=== PATIENT | female | born 1940 | race Caucasian/White ===

== ENCOUNTER 2018-05-13 21:45 | Inpatient (IN) ==
[2018-05-13] MEDS ORDERED: CEFEPIME 1 GM in NS 100 ML IV ONE ×2 (21:57→22:16)
[2018-05-13] MEDS ORDERED: LEVOFLOXACIN PB 750 MG/150 ML BAG IV ONE ×2 (21:58→22:16)
--- NOTE | 2018-05-13 22:02 | Emergency Department Report ---
Asthma HPI - General Stated Complaint: Pneumonia Time Seen by Provider: 05/13/18 21:51 Source: patient, EMS, other (Dr. Schwartz) Mode of arrival: EMS Limitations: no limitations - History of Present Illness HPI Narrative: Patient was seen in the office on Thursday, 4 days ago, for cough, shortness of breath, malaise and body aches. That time the patient was started on azithromycin, Tessalon Perles, prednisone, and increased Ventolin use at home. Patient also had lab and chest x-ray ordered, but was not able to make it to the hospital to get those tests done until today. Today the patient was found to have an elevated CBC at 20,000 with significant left shift, elevated lactate consistent with the chest x-ray which also showed pneumonia. Patient was instructed by her physician to come directly to the ER for further testing, initiation of antibiotics and fluids, for pneumonia with sepsis. Patient was brought by EMS, given one DuoNeb in route, and her dyspnea has essentially resolved for the time being. Patient has a history of COPD, and has had sepsis with pneumonia in the past - Related Data Home Medications Medication Instructions Recorded Confirmed Ibuprofen 400 mg PO Q4H PRN 11/10/17 11/10/17 Losartan [Cozaar] 50 mg PO DAILY 11/10/17 11/10/17 Previous Rx's Medication Instructions Recorded Albuterol HFA Inhaler [Ventolin 2 puff ORAL INH Q6HR PRN #1 inhaler 11/10/17 Hfa 90 mcg/actuation] Azithromycin [Zithromax Tri-Du] 500 mg PO DAILY #3 tab 11/10/17 Allergies Allergy/AdvReac Type Severity Reaction Status Date / Time Sulfa (Sulfonamide Allergy Unknown Verified 11/10/17 13:11 Antibiotics) Review of Systems All systems: reviewed and negative except as stated PFSH Patient Stated Medical History Other HEENT Yes: "need corrective lens" Hypertension Yes Chronic Obstructive Pulmonary Yes Disease (COPD) Pneumonia Yes Shingles Yes: 09/2017 Other Infectious Yes: polio Other Reproductive Yes: 3 vaginal deliveries,7, 1958, 1968 COPD Pneumonia Sepsis Surgical History: Negative - Social History Smoking status: Never smoker Substance use type: does not use Physical Exam - Limitations Limitations: no limitations - General General appearance: alert, in no apparent distress, other (vital signs are stable without tachycardia, hypotension, hypoxemia, or fever at this time) - Normal Exams: Head:: Normocephalic without trauma Eyes:: Pupils are PERRLA w/ EOMI, No scleral icterus, irritation, or foreign bodies noted ENMT:: No facial trauma, nasal exudates, pharyngeal erythema, or exudates are noted Neck:: Full range of motion, without adenopathy, JVD, bruits or thyromegaly Cardiovascular:: Regular rate and rhythm, without murmur or gallop, Pulses 2+ all extremities, capillary refill, <2 seconds all extremities Abdomen:: Bowel sounds positive, soft, non-tender, non-distended, no hepatosplenomegaly, masses or bruits noted Lymphatic:: No lymphadenopathy, or lymphedema noted Musculoskeletal:: No tenderness, or deformity noted, good range of motion, all extremities Integumentary:: No rashes, hives, or bruising noted, hair and nails, without abnormality Neurological:: Patient is alert, and oriented, cranial nerves, motor/sensory/ cerebellar, exams w/o gross deficits, to observation Psychiatric:: Patient exhibits, appropriate attention, emotion and affect - Chest Chest inspection: Present: normal inspection, symmetric chest wall rise. Absent : tenderness - Respiratory Respiratory exam: Absent: normal lung sounds bilaterally (mild coarse rhonchi bilaterally), respiratory distress, wheezes, stridor, accessory muscle use, prolonged expiratory phase Dyspnea - [facility] Narrative Medical decision making narrative: Patient is started on a 2 L saline bolus with triple antibiotic treatment for failed outpatient pneumonia with sepsis Labs are really ordered including CBC, CMP, and CT chest with IV contrast at the request of Dr. Schwartz Currently patient appears to have a stable pneumonia with sepsis, does not meet criteria for severe sepsis or sepsis with shock. We will admit inpatient medical floor to Dr. Schwartz 2199 - Dr. Schwartz in ER with Pt now. Admitting to Medical floor IP. Disposition Clinical Impression: Pneumonia Qualifiers: Pneumonia type: due to unspecified organism Laterality: right Lung location: middle lobe of lung Qualified Code(s): J18.1 - Lobar pneumonia, unspecified organism Sepsis Qualifiers: Sepsis type: sepsis due to unspecified organism Qualified Code(s): A41.9 - Sepsis, unspecified organism Disposition: 02 To [facility] Acute Care Condition: Stable Prescriptions: No Action Ibuprofen 400 mg PO Q4H PRN PRN Reason: Pain Albuterol HFA Inhaler [Ventolin Hfa 90 mcg/actuation] 2 puff ORAL INH Q6HR PRN #1 inhaler PRN Reason: Shortness Of Air/Wheezing Azithromycin [Zithromax Tri-Du] 500 mg PO DAILY #3 tab Losartan [Cozaar] 50 mg PO DAILY Referrals: Ryan Schwartz DO [Primary Care Provider] - - Seen By: physician
[2018-05-13] MEDS ORDERED: CEFTRIAXONE (ER USE ONLY) 1 GM in NS 100 ML IV ONE (22:06)
[2018-05-13] MEDS ORDERED: AZITHROMYCIN IV 500 MG in NS 250ml 250 ML IV ONE (22:06)
[2018-05-13] MEDS ORDERED: SALINE FLUSH 10ml SYRINGE ONE (22:10)
[2018-05-13] MEDS ORDERED: IOHEXOL 300mg/ml 75ml INJECTION ONE (22:10)
[2018-05-13] MEDS: NS 1,000 ML IV SCH ×2 (22:11→23:30)
[2018-05-13] MEDS: SALINE FLUSH 10ml SYRINGE IVF PRN (22:14)
[2018-05-14 00:18] VITALS: BMI 31.7
[2018-05-14] MEDS ORDERED: VANCOMYCIN - PHARMACY CONSULT MC ONE (00:18)
[2018-05-14] MEDS ORDERED: PHARMACY CONSULT - OTHER MEDS MC ONE (00:19)
--- NOTE | 2018-05-14 00:49 | History & Physical Report ---
History of Present Illness Date: 05/14/18 Chief complaint: communnity acquired pneumonia HPI: patient is a pleasant 77yo female with a history of post-polio syndrome and a remote history of asthma who is known to our clinic. she was in her usual state of health up until about 7 days ago. at that time she started developing runny nose and clear rhinorrhea which developed into left ear pain, productive cough with yellow sputum, fevers/chills as well as considerable generalized fatigue and weakness. she was seen in clinic 2 days ago for this. at that time her vitals were stable except for significant tachypnea on exam. coarse crackles were noted throughout her bases bilaterally and significant bibasilar end-expiratory wheezes noted as well. hospitalization/ER was recommended at that time but patient refused. labs and CXR were ordered as outpatient as back up to this at [facility] (see that progress note for details) and were recommended for that day. per patient report she couldn't get a ride at that time so didn't get the lab until today. she was noted to have a wbc count of about 20,000 as well as a bandemia. procalcitonin, troponin were unremarkable. CRP was significantly elevated at about 160. cmp showed some hyperglycemia, transaminase elevation and was otherwise unremarkable. EKG done in clinic 2 days ago was non acute. mg/phos done today were unremarkable. CXR was noted to have evidence of a bibasilar pneumonia. patient had been started already on azithromycin, prednisone, tessalon perles, albuterol on Thursday when she refused inpatient therapy. patient called today and recommended she come into ER immediately by EMS to be evaluated for admission. she initially refused and stated she'd only come in by private vehicle but, after not being about to find a ride, she eventually did come in by EMS. she has noticed some increase in strength today and has been on the above meds for couple of days. in the ER her vitals were stable. her cmp showed mild hyperglycemia as noted as well as improved transaminase elevation and was otherwise unremarkable. a lactic acid was high at 3.9. a cbc did show an improvement of the leukocytosis and the bandemia had resolved and was otherwise unremarkable. a CT scan of the chest with IV contrast did show multifocal pneumonia without any evidence of empyema or parapneumonic effusions. patient was started on vancomycin and levaquin and given 2 liters of IV normal saline and admitted to the floor. as I see the patient she is still feeling quite ill but is stable otherwise. ROS positive for feeling feverish and chilled as noted above. she hasn't taken her temperature. no recent travel, camping, sick exposures, luna exposures. left ear pain noted above has resolved with the azithromycin. she has a mild splinting pain located about 4 inches right lateral to lower lumbar spine which is worse when she breaths deep. she is SOA but improved from a couple of days ago. SOA is most prominent on exertion. no skin changes or new rashes. no falls, trauma, injuries. no headaches, ear pain, ear drainage, sinus pain, sore throat. runny nose as noted above persists. no dizziness, syncope, near- syncope. no vision changes, cranial nerve symptoms/deficits, unintentional weight loss, night sweats, constitutional symptoms. no IV drug use. no significant alcohol use. doesn't smoke and states she never has. no new or changing numbness/weakness/tingling anywhere. chronic post-polio syndrome is unchanged from previous baseline and I'll defer yout to clinic notes for information on that as it is chronic, not changed and not acutely worse. no numbness/weakness/tingling/pain in face/eyelids. no cranial nerve symptoms/ deficits. no seizure symptoms or seizure history. no other chest pain. no orthopnea, PND, new edema, leg asymmetry, palpitations, hemoptysis. no abdominal pain, GERD symptoms, nausea, vomiting, diarrhea, constipation, bloody/ black stools, hematemesis, coffee ground emesis, melena, BRBPR, dysphagia, GI warning symptoms. appetite is modestly diminished with this illness. no other constitutional symptoms. no meningeal symptoms, photophobia, neck rigidity, encephalopathic symptoms, confusion, altered mentation, obtundation, depression symptoms, anxiety, changes in cognition/personality/behavior. no homicidal/ suicidal ideations. no dysuria, hematuria, urinary frequency, flank pain, nocturia, urinary/bowel incontinance, urinary retention, polyuria, oliguria, other urinary symptoms/changes. no boggy/inflammed/swollen/painful focal joints or muscle groups. no pallor/cyanosis of coldness of extremities. see above and below for other review of systems. Review of Systems - Constitutional Constitutional: Present: as per HPI - EENMT Eyes: Present: as per HPI, other (no acute vision changes. ) Ears: Present: as per HPI Balance: Present: as per HPI Nose: Present: as per HPI Mouth/Throat: Present: as per HPI - Cardiovascular Cardiovascular: Present: as per HPI Vascular: Present: see HPI - Respiratory Respiratory: Present: as per HPI - Gastrointestinal Gastrointestinal: Present: as per HPI - Genitourinary Genitourinary: Present: as per HPI Genitourinary Comments: no DATABASE TECHNICIAN issues or changes. - Musculoskeletal Musculoskeletal: Present: as per HPI Musculoskeletal Comments: no bony spine tenderness - Integumentary/Breasts Integumentary: Present: as per HPI Integumentary Comments: no skin changes or new rashes. - Neurological Neurological: Present: as per HPI - Psychiatric Psychiatric: Present: as per HPI - Endocrine Endocrine: Present: as per HPI - Hematologic/Lymphatic Hematologic/Lymphatic: Present: as per HPI - Allergic/Immunologic Allergic/Immunologic: Present: as per HPI (please see above for allergies and ADR's. ) Past Medical History Medical History Updates: -post polio syndrome. -hypothyroid. -seasonal allergies. -dry eyes. -cataracts. -measles in the past as well as mumps Surgical History: -tonsillectomy in 1942. -appendectomy as a child. -tubal ligation in 1969. -bilateral cataract removal earlier this year. Family History: -3 sisters. all healthy she is adopted and otherwise knows very little about her family history. Family History Updates: see above. Family History: As Above - Social History Smoking status: Never smoker Social history: -no tobacco use at any time per patient. -no significant alcohol use -no illicit substance use -lives at home. -retired -moved from [place] about in late 2017. Medications Home Medications Medication Instructions Recorded Confirmed Type Albuterol HFA Inhaler [Ventolin 2 puff ORAL INH Q6HR PRN #1 inhaler 11/10/17 Rx Hfa 90 mcg/actuation] Azithromycin [Zithromax Tri-Du] 500 mg PO DAILY #3 tab 11/10/17 Rx Ibuprofen 400 mg PO Q4H PRN 11/10/17 11/10/17 History Losartan [Cozaar] 50 mg PO DAILY 11/10/17 11/10/17 History Allergies Allergy/AdvReac Type Severity Reaction Status Date / Time Sulfa (Sulfonamide Allergy Unknown Verified 11/10/17 13:11 Antibiotics) Exam Vital Signs: Temperature 97.9 F 05/13/18 23:00 Pulse Rate 86 05/13/18 23:00 Respiratory Rate 18 05/13/18 23:00 Blood Pressure 140/70 H 05/13/18 23:00 Pulse Oximetry 94 05/13/18 23:00 Height/Weight/BMI: Height 1.63 m Weight 83.9 kg Body Mass Index 31.7 - Constitutional Present: no acute distress, cooperative. Absent: diaphoretic, combative, agitated, somnolent, obtunded - Routine HEENT Exam Head: Present: normocephalic, atraumatic Eye: Present: EOMI, PERRL. Absent: scleral injection, periorbital ecchymosis, periorbital swelling, periorbital tenderness, nystagmus, exophthalmos, proptosis ENT: Present: mucous membranes dry (mildly dry. ) Comments: see progress notes from clinic for ENT exam from 2 days ago. - Routine Neck Exam Present: supple, full ROM, trachea midline. Absent: JVD, lymphadenopathy (no lymphadenopathy in all head/neck/supraclavicular pfeiffer b/l at this time. ), thyromegaly, tenderness, swelling, tracheal deviation, trauma, meningismus Comments: CN2-12 in tact. sensation/motor/muscle strength/DTR's unchanged from usual baseline in extremities b/l X4. PERRLA. EOMI. no nystagmus. no changes neurologically from previous baseline. no clinical evidence of shell, depression, anxiety, altered mentation, obtundation, confusion, psychosis, delerium, encephalopathy, meningitis, photophobia, neck rigidity at this time. denies homicidal/suicidal ideations. - Routine Chest/Breast/Axilla Exam Comments: mild pain to posterior lower rib cage to palpation and this is located about 4 to 5 inches right lateral to lower posterior rib cage. no step offs or deformities there. notes it's a lot worse when it coughs. no bony spine tenderness. this pain is mild. no redness/inflammed/swelling of area in question there. - Routine Respiratory Exam Absent: accessory muscle use, patient mechanically ventilated, dyspnea, prolonged expiratory phase, rales, respiratory distress, rhonchi, stridor Comments: mild bibasilar crackles and end-expiratory wheezes which are improved from 2 days ago. moving air better than 2 days ago but not back to baseline. lung sounds heard in all lung pfeiffer b/l at this time. no respiratory distress, retractions, accessory muscle use, stridor, airway compromise b/l at this time. - Routine Cardiovascular Exam Present: RRR. Absent: irregular rhythm, irregularly irregular, JVD Comments: no new or changing murmurs. no changes in cardiac exam from previous. no LE edema b/l at this time. no boggy/inflammed/swollen/painful focal joints or muscle groups. no pallor or cyanosis of extremities b/l X4. clinically well perfused and pulses good in extremities b/l X4. no clinical evidence of decompensated heart failure or fluid overload at this time. - Routine Abdominal Exam Present: soft (X4.), normoactive bowel sounds (X4.), non distended (X4.), non tender (X4.). Absent: tenderness (X4.), distended (X4.), rebound, guarding, firm, rigid, organomegaly, mass Comments: no ascites, jaundice, distension. no clinical evidence of acute abdomen at this time. - Routine Exam Comments: no flank pain b/l at this time. no clinical evidence of upper or lower UTI at this time. no clinical evidence of acute, new or worsening neurovascular compromise in extremities b/l X4. - Routine Extremities Exam Absent: extremity cold to touch Comments: see above. - Routine Back/Spine/Pelvis Exam Comments: see above. - Routine Skin Exam Present: intact, dry. Absent: cyanosis, erythema, pallor, mottling, petechiae, urticaria Comments: no skin issues or changes to uncovered areas at this time. - Routine Neurological Exam see above. - Routine Psychiatric Exam Present: normal affect, normal thought process, cooperative. Absent: suicidal ideation, homicidal ideation, auditory hallucinations, visual hallucinations, tactile hallucinations, depressed, anxious, agitated, paranoid, manic Comments: denies homicidal/suicidal ideations. Results - Labs CBC & Chem 7: 05/13/18 22:04 05/13/18 22:04 Microbiology Results: Microbiology 05/13/18 22:05 Peripheral/Iv Start Blood Culture - Preliminary Culture Initiated - Results Pending 05/13/18 22:04 Peripheral/Iv Start Blood Culture - Preliminary Culture Initiated - Results Pending Assessment and Plan Assessment and Plan: community acquired pneumonia with severe sepsis. risk factor for MRSA is recent antibiotics. no risk factors for pseudomonas. lactic acidosis secondary to the above. reactive airway secondary to the above versus acute asthma exacerbation mild transaminase elevation likely secondary to sepsis which is improving leukocytosis and bandemia secondary to the above, improving mild to moderate steroid induced hyperglycemia history of seasonal allergies -patient with stable vitals, clinically well perfused right now and as showed some improvement anyway over the last few days and thus will admit to floor. will consider transfer to ICU for any worsening or if failing to respond to current therapy. start oxygen as needed, routine vitals with call parameters , I's and O's, daily weights, activity up with assist, cardiac diet, incentive spirometry, continuous pulse oximetry, telemetry. -start IV vancomycin with pharmacy to dose and manage for pneumonia. start IV levaquin as well with pharmacy to dose and manage. start duonebs scheduled, IV solumedrol every 8 hours, tessalon perles scheduled. restart home jennifer. restart home aspirin. patient bolused with IV normal saline and will start basal rate at 125ml/hr. -follow lactic acids and procalcitonins. get coag panel, mg, phos, troponins with call parameters, respiratory PCR panel, serum mycoplasma serologies, urine legionella, urine strep pneumonia. follow on blood cultures X2 already drawn. check sputum culture with gram stain. check TSH. -cbc, cmp, troponin in the AM -further workup and management pending the above. hypothyroid -continue synthroid from home. -follow TSH as noted above. constipation -not an issue right now. would restart home dulcolax prn if this occurs dry eyes -restart home artifical tears all other chronic medical conditions stable and no changes to plan of care at this time. ppx -SCD's and SQ lovenox for DVT ppx. -PO diet noted above for GI ppx. -FULL CODE -dispo heavily dependent on the above. DVT Prophylaxis: SCD's, Lovenox GI Prophylaxis: other (PO diet.) Resuscitation Status: Full Code - Time spent with patient Time with patient PN: 70 minutes Sepsis Assessment - Evaluation SIRS Criteria: pulse > 90 beats/minute, WBC > 12,000, Bands > 10% Severe Sepsis: lactate > 2.0 mg/dL
[2018-05-14] MEDS: NS 1,000 ML IV SCH ×3 (00:54→14:09)
[2018-05-14] MEDS: METHYLPREDNISOLONE SOD SUCC 125mg/2ml INJECTION IVP SCH ×3 (00:59→16:47)
[2018-05-14] MEDS ORDERED: ARTIFICIAL TEARS 15ml EACH EYE PRN (01:28)
[2018-05-14] MEDS: ALBUTEROL/IPRATROPIUM 2.5mg-0.5mg/3ml NEB AEROSOL SCH ×6 (01:31→21:15)
[2018-05-14] MEDS: LEVOFLOXACIN PB 750 MG/150 ML BAG IV SCH ×2 (02:00→20:18)
[2018-05-14] MEDS: LEVOTHYROXINE 50 MCG TABLET PO SCH (06:20)
--- NOTE | 2018-05-14 08:01 | CT Scan Report ---
Indication: complex pneumonia, possible empyema PROCEDURE: CT chest w con: Encounter: Initial Comparison: May 13, 2018 chest x-ray Technique: Axial CT images were performed through the chest after the administration of intravenous contrast. Coronal and sagittal two-dimensional reformats. Automated Exposure Control and Iterative Reconstruction dose reducing techniques were utilized. Contrast: Omnipaque 300 74 mL Findings: Peripheral airspace consolidation noted in the lingula, right middle and right lower lobes. The patchy infiltrate in the left lower lobe. There is no parapneumonic effusion or empyema. No pneumothorax. The central airways are patent. There are areas of density within these peripheral areas of consolidation suggesting that some of these may relate to pleural plaques. No axillary or mediastinal lymphadenopathy. Cystic left thyroid nodule. Heart size is normal. No pericardial effusion. Small hiatal hernia. The upper abdomen shows no acute findings. Impression: Patchy bilateral pneumonia, greatest in the right lower lobe. There is a preliminary report by virtual radiologic. .
[2018-05-14] MEDS: ASPIRIN *EC* 81 MG TABLET PO SCH (08:29)
[2018-05-14] MEDS: BENZONATATE 200 MG CAPSULE PO SCH ×3 (08:29→20:18)
[2018-05-14] MEDS: FEXOFENADINE 180 MG TABLET PO SCH (08:29)
[2018-05-14] MEDS: ENOXAPARIN 40 MG/0.4 ML INJECTION SQ SCH (08:29)
--- NOTE | 2018-05-14 14:13 | Pharmacy Note - Antibiotics ---
Pharmacy - Antibiotic Therapy - Laboratory Information Laboratory 05/13/18 05/14/18 05/14/18 22:04 04:59 04:59 Creatinine 0.9 D 0.7 D Procalcitonin 0.11 - Antibiotic Information Levofloxacin dosing for pneumonia: 77 y.o. F admitted for community acquired pneumonia with severe sepsis. SCr= 0.7 mg/dL; est CrCl ~ 50 ml/min Levofloxacin 750 mg IV Q24H dosing is appropriate. first dose given 05/13/18 @ 2232 Next dose of Levofloxacin scheduled for 05/14/18 @ 2100. Thank you, Ana Yañez, [facility]
--- NOTE | 2018-05-14 14:13 | Pharmacy Consult-Antibiotics ---
Pharmacy Consult-Vancomycin - Laboratory Information WBC 13.5 T/MM3 (4.5-11.0) H 05/14/18 04:59 BUN 18.0 MG/DL (7-17) H 05/14/18 04:59 Creatinine 0.7 mg/dL (0.7-1.2) D 05/14/18 04:59 Procalcitonin 0.11 NG/ML 05/14/18 04:59
--- NOTE | 2018-05-14 15:41 | Echocardiogram ---
DATE OF PROCEDURE May 14, 2018 REFERRING PHYSICIAN Ryan Schwartz DO This is a two-dimensional echo with spectral Doppler, color-flow and M-mode. It was obtained in a patient with shortness of breath. Left atrial dimension is normal. Left ventricle end-diastolic dimension is normal. Left ventricular wall thickness is normal. LV systolic function is normal with ejection fraction of 70%. Right atrium is normal. Right ventricle is normal. Aortic root dimension is normal. Mitral annulus is mildly calcified. Mitral valve leaflets are normal with trace of mitral regurgitation. Aortic valve shows fibrocalcific changes with no stenosis or insufficiency. Tricuspid valve shows trace of tricuspid regurgitation with normal estimated pulmonary artery systolic pressure of 22. Pulmonary valve shows trace of pulmonary insufficiency. There is no pericardial effusion. IMPRESSION 1. Normal LV systolic function with ejection fraction of 70%. 2. Mitral annulus calcification with trace of mitral regurgitation. 3. Aortic sclerosis. 4. Trace of tricuspid regurgitation with normal estimated pulmonary artery systolic pressure of 22. 5. Trace of pulmonary insufficiency. MTDD
--- NOTE | 2018-05-15 00:24 | Progress Note ---
- Date 05/15/18 Subjective: patient doing much better today. SOA and wheezing much improved from yesterday. energy much improved from admission. no fevers, chills, body aches. she feels back much closer to her usual baseline today. no headaches, stroke symptoms, focal neurologic deficits, cranial nerve symptoms/deficits. no new or changing dizziness. no new or changing numbness/weakness/tingling/ pain in extremities or otherwise. she feels like her general strength is much improved today throughout. no falls, trauma, injuries. no boggy/swollen/ painful focal joints or muscle groups. no pallor or cyanosis of extremities. no photophobia, meningeal symptoms, neck rigidity, encephalopathic symptoms, mood changes, depression symptoms, anxiety, altered mentation, obtundation, confusion, psychosis, delerium, altered mentation, homicidal/suicidal ideations , changes in cognition. no skin changes or new rashes. no vision changes or issues. no chest pain, SOA, orthopnea, PND, new edema, leg asymmetry, changes in exertional tolerance, palpitations. cough markedly improved and not nearly as productive as upon admission. no hemoptysis. no abdominal pain, GERD symptoms, nausea, vomiting, diarrhea, bloody/black stools, hematemesis, coffee ground emesis, melena, BRBPR. no BM since admission but patient hasn't been here long and she hasn't been constipated in general as of late. no dysphagia or other GI warning symptoms. no unintentional weight loss, appetite changes, night sweats, constitutional symptoms. no dysuria, hematuria, urinary frequency , flank pain, nocturia, urinary/bowel incontinance, urinary retention, polyuria , oliguria, other urinary symptoms/changes. no issues or events called on telemetry. no new issues otherwise at this time. Objective Vital signs: Temperature 97.7 F 05/15/18 00:00 Pulse Rate 86 05/15/18 00:00 Respiratory Rate 18 05/15/18 00:00 Blood Pressure 130/68 05/15/18 00:00 Pulse Oximetry 94 05/15/18 00:00 Rhythm: Normal Sinus Rhythm Height/Weight/BMI: Height 1.63 m Weight 85 kg Body Mass Index 31.7 - Constitutional Present: no acute distress, well nourished, well developed, cooperative. Absent : diaphoretic, disheveled, combative, agitated, somnolent, obtunded, other - Routine HEENT Exam Head: Present: normocephalic, atraumatic Eye: Present: EOMI, PERRL. Absent: periorbital ecchymosis, periorbital swelling ENT: Present: mucous membranes moist Comments: no changes from previous. - Routine Respiratory Exam Present: CTA bilaterally. Absent: accessory muscle use, patient mechanically ventilated, dyspnea, decreased breath sounds, prolonged expiratory phase, rales , respiratory distress, rhonchi, stridor, wheezes, crackles, distant breath sounds Comments: lung sounds heard in all lung pfeiffer b/l at this time. moving air much better today but not quite back to baseline. - Routine Cardiovascular Exam Present: RRR Comments: no changes to cardiac exam from previous. no new or changing murmurs. no clinical evidence of decompensated heart failure at this time. - Routine Abdominal Exam Present: soft, normoactive bowel sounds, non distended, non tender. Absent: tenderness, distended, rebound, guarding, firm, rigid, organomegaly, mass Comments: no ascites, jaundice, distension. - Routine Exam Comments: no flank pain b/l at this time. no clinical evidence of upper or lower UTI at this time. no back pain. no clinical evidence of acute, new or changing neurovascular compromise in extremities b/l X4 at this time. sensation/motor/ muscle strength/DTR's unchanged from usual baseline in extremities b/l X4. CN2- 12 in tact. no changes neurologically otherwise from previous baseline. affect and cognition unchanged from previous. no clinical evidence of shell, depression, anxiety, altered mentation, obtundation, confusion, psychosis, delerium, encephalopathy, meningitis, photophobia, neck rigidity. denies homicidal/suicidal ideations. - Routine Extremities Exam Comments: see above. no new edema. no LE edema in extremities b/l at this time X4. clinically well perfused in all 4 extremities b/l at this time. no boggy/ inflammed/swollen/painful focal joints or muscle groups b/l X4. legs and arms symmetrical and compartments soft in extremities b/l X4. pulses in LE's normal at this time. no skin changes from previous to uncovered areas. - Routine Back/Spine/Pelvis Exam Comments: see the above. - Routine Musculoskeletal Exam Musculoskeletal: Present: no clubbing or cyanosis, no joint swelling, no erythema, moving extremities well. Absent: joint erythera, joint swelling - Routine Skin Exam Present: intact. Absent: cyanosis, erythema, dry, pallor, rash (to uncovered areas. ) Comments: see the above. - Routine Neurological Exam Present: alert, oriented X3 see the above HPI. denies homicidal/suicidal ideations. - Routine Lymphatic Exam Lymphatic: Absent: adenopathy, lymphedema Comments: no lymphadenopathy in all head/neck/supraclavicular pfeiffer bilaterally at this time. - Routine Psychiatric Exam Present: normal affect, normal thought process, cooperative, good insight, good judgment. Absent: suicidal ideation, homicidal ideation, auditory hallucinations, visual hallucinations, tactile hallucinations, depressed, anxious, agitated, paranoid, manic Results - Labs CBC & Chem 7: 05/14/18 04:59 05/14/18 04:59 Microbiology Results: Microbiology 05/13/18 22:05 Peripheral/Iv Start Blood Culture - Preliminary No Growth After 1 Day 05/13/18 22:04 Peripheral/Iv Start Blood Culture - Preliminary No Growth After 1 Day 05/14/18 07:58 Urine Legionella Urinary Antigen - Final 05/14/18 07:58 Urine Streptococcus pneumoniae Antigen (M - Final Assessment and Plan Assessment and Plan: community acquired pneumonia with severe sepsis. risk factor for MRSA is recent antibiotics. no risk factors for pseudomonas. lactic acidosis secondary to the above, resolved. reactive airway secondary to the above versus acute asthma exacerbation mild transaminase elevation likely secondary to sepsis which is improving clinical dehydration, much improved leukocytosis and bandemia secondary to the above, improving. bandemia is resolved mild steroid induced hyperglycemia dilutional anemia history of seasonal allergies hypothyroid elevated, asymptomatic blood pressure at times without diagnosis of hypertension -continue oxygen as needed, routine vitals with call parameters, I's and O's , daily weights, activity up with assist, cardiac diet, incentive spirometry, continuous pulse oximetry, telemetry. will initiate ambulation TID with assist. consider getting PT/OT involved. verbal orders given to nursing to check blood pressures manually as these tend to be more accurate and bp's have looked ok right now. -continue IV vancomycin and levaquin day 2 with pharmacy to dose and still awaiting more culture results to pair down abx. if no further microbiologic data by tomorrow we may discontinue vancomycin. continue duonebs scheduled. decrease IV solumedrol to 40mg IV q12hrs. continue tessalon perles scheduled, home PO jennifer, home PO aspirin. copious amounts of IV normal saline given today and patient now down to 40ml/hr of normal saline. -lactic acids have normalized and procalcitonins normal too. coag panel generally unremarkable as are mg, phos, troponins, respiratory PCR, urine legionella, urine strep pneumonia. TSH is 0.36 which is likely confounded some by acute illness so will hold on changing synthroid dose. BNP unremarkable. EKG's stable and non-acute. echocardiogram with normal EF, some mention of mild aortic sclerosis without stenosis/regurgitation and this is unlikely of any clinical significance. also noted on echocardiogram was otherwise normal valvular function as well as normal pulmonary artery pressures. cbc's with improving leukocytosis as well as resolved bandemia. also has mild anemia now which is dilutional and patient without clinical evidence of blood loss from anywhere at this time. cmp's with improving transaminases as sepsis resolves, blood sugars in low 100s, and otherwise unremarkable. -sputum culture and gram stain as well as blood cultures X2 from admission pending. -cbc and cmp this AM. -further workup and management pending the above. hypothyroid -continue synthroid from home. -see above for TSH results. constipation -recommended starting dulcolax or other bowel regemine today and patient refuses. will re-evaluate tomorrow. dry eyes -continue home artifical tears all other chronic medical conditions stable and no changes to plan of care at this time. ppx -SCD's and SQ lovenox for DVT ppx. -PO diet noted above for GI ppx. -FULL CODE -dispo possibly home Thursday but most likely Thursday. DVT Prophylaxis: SCD's, Lovenox GI Prophylaxis: other (continue PO diet.) Resuscitation Status: Full Code - Time spent with patient Time with patient PN: 25 minutes Sepsis Assessment - Evaluation SIRS Criteria: WBC > 12,000 Severe Sepsis: none seen
[2018-05-15] MEDS ORDERED: NS 1,000 ML IV SCH (00:30)
[2018-05-15] MEDS: NS 1,000 ML IV SCH (00:48)
[2018-05-15] MEDS: ALBUTEROL/IPRATROPIUM 2.5mg-0.5mg/3ml NEB AEROSOL SCH ×6 (01:12→20:24)
[2018-05-15] MEDS: LEVOTHYROXINE 50 MCG TABLET PO SCH (05:34)
[2018-05-15] MEDS: FEXOFENADINE 180 MG TABLET PO SCH (09:00)
[2018-05-15] MEDS: ENOXAPARIN 40 MG/0.4 ML INJECTION SQ SCH (09:00)
[2018-05-15] MEDS: BENZONATATE 200 MG CAPSULE PO SCH ×3 (09:00→20:40)
[2018-05-15] MEDS ORDERED: METHYLPREDNISOLONE SOD SUCC 40mg/ml INJECTION IM SCH (09:00)
[2018-05-15] MEDS: ASPIRIN *EC* 81 MG TABLET PO SCH (09:00)
[2018-05-15] MEDS ORDERED: METHYLPREDNISOLONE SOD SUCC 40mg/ml INJECTION IVP SCH (09:08)
[2018-05-15] MEDS: SALINE FLUSH 10ml SYRINGE IVF PRN (09:51)
[2018-05-15] MEDS: METHYLPREDNISOLONE SOD SUCC 40mg/ml INJECTION IVP SCH ×2 (09:51→20:40)
[2018-05-15] MEDS: LEVOFLOXACIN PB 750 MG/150 ML BAG IV SCH (20:39)
[2018-05-16] MEDS: ALBUTEROL/IPRATROPIUM 2.5mg-0.5mg/3ml NEB AEROSOL SCH ×6 (00:49→20:05)
[2018-05-16] MEDS: LEVOTHYROXINE 50 MCG TABLET PO SCH (05:43)
[2018-05-16] MEDS: SALINE FLUSH 10ml SYRINGE IVF PRN (05:44)
[2018-05-16] MEDS: ENOXAPARIN 40 MG/0.4 ML INJECTION SQ SCH (08:34)
[2018-05-16] MEDS: ASPIRIN *EC* 81 MG TABLET PO SCH (08:35)
[2018-05-16] MEDS: METHYLPREDNISOLONE SOD SUCC 40mg/ml INJECTION IVP SCH ×2 (08:35→20:36)
[2018-05-16] MEDS: BENZONATATE 200 MG CAPSULE PO SCH ×3 (08:35→20:35)
[2018-05-16] MEDS: FEXOFENADINE 180 MG TABLET PO SCH (08:35)
--- NOTE | 2018-05-16 19:56 | Progress Note ---
- Date 05/16/18 Subjective: no acute issues overnight. had X10 beat run of atrial tachycardia last night which was asymptomatic. no issues called on telemetry otherwise. patient states she's felt remarkably well. no headaches, stroke symptoms, focal neurologic deficits, fevers, chills, body aches, fatigue, weakness, ear pain, sinus pain, sore throat, runny nose, falls, trauma, injuries, night sweats, unintentional weight, loss, constitutional symptoms. no new or changing numbness/weakness/tingling/pain in extremities or otherwise. no pain in arms or legs at all now and her general strength is back to near baseline at this time. no skin changes or new rashes. no boggy/inflammed/swollen/painful focal joints or muscle groups. no pallor or cyanosis of extremities. no dizziness, syncope ,near-syncope, orthostatic symptoms, vision changes, cranial nerve symptoms/deficits. no chest pain, SOA, orthopnea, PND, new edema, leg asymmetry , changes in exertional tolerance, palpitations. cough almost resolved and not very productive when it occurs. no hemoptysis, abdominal pain, GERD symptoms, nausea, vomiting, diarrhea, constipation, bloody/black stools, hematemesis, coffee ground emesis, melena, BRBPR, dysphagia, GI warning symptoms, mood changes, depression symptoms, obtundation, confusion, altered mentation, changes in cognition, homicidal/suicidal ideations, encephalopathic symptoms, meningeal symptoms, photophobia, neck rigidity. no dysuria, hematuria, urinary frequency, flank pain, nocturia, urinary/bowel incontinance, urinary retention, polyuria, oliguria, other urinary symptoms/changes. no skin/soft tissue infection symptoms. no pain at attachments of tendons to bones (ankles, etc.) and no tendonopathy or related symptoms. no new issues otherwise at this time. Objective Vital signs: Temperature 95.8 F L 05/16/18 15:00 Pulse Rate 85 05/16/18 15:00 Respiratory Rate 20 05/16/18 16:15 Blood Pressure 152/62 H 05/16/18 16:55 Pulse Oximetry 97 05/16/18 16:15 Rhythm: Normal Sinus Rhythm Height/Weight/BMI: Height 1.63 m Weight 87.6 kg Body Mass Index 31.7 - Constitutional Present: no acute distress, well nourished, well developed, cooperative Comments: not combative or agitated. no changes from yesterday. - Routine HEENT Exam Head: Present: normocephalic, atraumatic Comments: no changes from previous. no changes neurologically from previous baseline. affect and cognition unchanged from usual baseline. no clinical evidence of shell, depression, anxiety, altered mentation, obtundation, confusion, psychosis , delerium, encpehalpathy, meningitis, neck rigidity, photophobia. denies homicidal/suicidal ideations. - Routine Respiratory Exam Comments: lungs clear to auscultation bilaterally. no crackles, wheezes or rales. moving air well. lung sounds heard in all lung pfeiffer b/l at this time. no respiratory distress, retractions, accessory muscle use, stridor, airway compromise b/l at this time. - Routine Cardiovascular Exam Comments: cardiac exam unchanged from previous baseline. hRRR at this time. no new or changing murmurs. clinically well perfused in all 4 extremities b/l at this time. no boggy/inflammed/swollen/painful focal joints or muscle groups. no pallor or cyanosis of extremities b/l X4. no clinical evidence of decompensated heart failure at this time. legs symmetrical and compartments soft b/l in extremities x4 at this time. - Routine Abdominal Exam Present: soft (X4.), normoactive bowel sounds (X4.), non distended (X4.), non tender (X4.) Comments: no guarding, rebound, rigidity. no clinical evidence of acute abdomen at this time. no masses. no ascites, jaundice, distension. - Routine Exam Comments: no clinical evidence of upper or lower UTI at this time. no back pain. no clinical evidence of acute, new or worsening neurovascular compromise in extremities b/l X4. 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 sensation/motor /muscle strength/DTR's unchanged from usual baseline at this time. see above also. - Routine Extremities Exam Comments: see above. no boggy/inflammed/swollen/painful focal joints or muscle groups. no pallor or cyanosis of extremities. - Routine Back/Spine/Pelvis Exam Comments: no back pain. see above. - Routine Musculoskeletal Exam Musculoskeletal: Present: no clubbing or cyanosis, no joint swelling (no cellulitis or dermatitis in extremities b/l X4.), no erythema - Routine Skin Exam Present: intact Comments: see above. no changes from previous to uncovered areas. - Routine Neurological Exam Present: alert, oriented X3, moving all extremities no tremors or muscle rigidity. no flushing. no clinical evidence of tendonopathy in extremities b/l X4. see above as well. - Routine Psychiatric Exam Present: normal affect, normal thought process, cooperative Comments: denies homicidal/suicidal ideations. see the above. Results - Labs CBC & Chem 7: 05/16/18 03:55 05/16/18 03:55 Microbiology Results: Microbiology 05/13/18 22:05 Peripheral/Iv Start Blood Culture - Preliminary No Growth After 2 Days 05/13/18 22:04 Peripheral/Iv Start Blood Culture - Preliminary No Growth After 2 Days 05/14/18 07:58 Urine Legionella Urinary Antigen - Final 05/14/18 07:58 Urine Streptococcus pneumoniae Antigen (M - Final Assessment and Plan Assessment and Plan: community acquired pneumonia with severe sepsis. risk factor for MRSA is recent antibiotics. no risk factors for pseudomonas. 10 beat run of atrial tachycardia last night lactic acidosis secondary to the above, resolved. reactive airway secondary to the above versus acute asthma exacerbation mild transaminase elevation likely secondary to sepsis which is improving clinical dehydration, much improved leukocytosis and bandemia secondary to the above, improving. bandemia is resolved mild steroid induced hyperglycemia dilutional anemia history of seasonal allergies hypothyroid elevated, asymptomatic blood pressure at times without diagnosis of hypertension -continue oxygen as needed, routine vitals with call parameters, I's and O's , daily weights, activity up with assist, cardiac diet, incentive spirometry, continuous pulse oximetry, telemetry. will initiate ambulation TID with assist. continue PT/OT. check bp's manually. patient states she doesn't feel like she'd do well at home now so so getting set up for home health per her request. in reviewing the telemetry strip from earlier today it appears she had a 10 beat run or so of SVT with no repeats since then. continue as is ordered for this. -discontinue vancomycin. continue levaquin day 3. continue duonebs scheduled, current IV solumedrol, tessalon perles, PO jennifer, PO aspirin. IV fluids discontinued. continue current synthroid. -cbc's with stable dilutional anemia and steroid induced leukocytosis. doesn't appear to be any significant bandemia in general. otherwise cbc's unremarkable. mg and troponin from this AM unremarkable. EKG from today non acute. no further episodes of atrial ectopy and will continue to monitor this on telemetry. see previous notes and records for other testing and results fro this stay. -sputum culture and gram stain pending. blood cultures X2 from admission negative thus far but still officially pending. -cbc and cmp this AM. -further workup and management pending the above. constipation -monitoring dry eyes -continue home artifical tears all other chronic medical conditions stable and no changes to plan of care at this time. ppx -continue SCD's and SQ lovenox for DVT ppx. -continue PO diet noted above for GI ppx. -FULL CODE -dispo likely discharge to home tomorrow. DVT Prophylaxis: SCD's, Lovenox GI Prophylaxis: other (continue PO diet. ) Resuscitation Status: Full Code - Time spent with patient Time with patient PN: 25 minutes Coordination of Care: >50% of visit spent providing counseling/coordination of care Sepsis Assessment - Evaluation SIRS Criteria: WBC > 12,000 Severe Sepsis: none seen
[2018-05-16] MEDS: LEVOFLOXACIN PB 750 MG/150 ML BAG IV SCH (20:36)
[2018-05-17] MEDS: ALBUTEROL/IPRATROPIUM 2.5mg-0.5mg/3ml NEB AEROSOL SCH ×4 (01:05→12:52)
[2018-05-17] MEDS: LEVOTHYROXINE 50 MCG TABLET PO SCH (05:41)
[2018-05-17 07:16] VITALS: BP 130/86; TEMP 95.3
[2018-05-17] MEDS: BENZONATATE 200 MG CAPSULE PO SCH ×2 (08:49→15:17)
[2018-05-17] MEDS: METHYLPREDNISOLONE SOD SUCC 40mg/ml INJECTION IVP SCH (08:49)
[2018-05-17] MEDS: FEXOFENADINE 180 MG TABLET PO SCH (08:49)
[2018-05-17] MEDS: SALINE FLUSH 10ml SYRINGE IVF PRN (08:50)
[2018-05-17] MEDS: ENOXAPARIN 40 MG/0.4 ML INJECTION SQ SCH (08:50)
[2018-05-17] MEDS: ASPIRIN *EC* 81 MG TABLET PO SCH (08:50)
[2018-05-17 13:03] VITALS: RESP 20; O2SAT 94
--- NOTE | 2018-05-17 13:32 | Progress Note ---
- Date 05/17/18 Subjective: no acute issues overnight. patient doing well. no events called on telemetry overnight. when asked patient notes the only issue is she feels like the great toenail on her right foot has turned a redish hue. she has noticed this just today. no right or left foot pain/swelling/edema. it doesn't feel any different that previous, it just looks different. no new or changing numbness/ weakness/tingling in toes/feet or lower extremities in general bilaterally and in all 4 extremities generally at this time. range of motion in right/left toes normal in all directions at this time and same with bilateral feet. left toes she feels are normal colored. ROS negative for threatened limbs in extremities x4. sensation/motor/muscle strength at usual baseline in toes/feet bilaterally. otherwise patient doing well. no headaches, stroke symptoms, focal neurologic deficits, fevers, chills, body aches, fatigue, weakness, ear pain, sinus pain, sore throat, runny nose, skin changes, new rashes. 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 no cranial nerve symptoms/ deficits. no numbness/weakness/tingling/drooping in face or eyelids. no aspiration or dysphagia symptoms. no vision changes or issues. no falls, trauma, injuries. eating ok and drinking ok as well. no boggy/inflammed/ swollen/painful focal joints or muscle groups b/l X4 extremities. no pallor or cyanosis of extremities b/l X4. no orthostatic symptoms, chest pain, SOA, orthopnea, PND, new edema, leg asymmetry, changes in exertional tolerance, palpitations, cough, sputum production, hemoptysis. no unintentional weight loss, appetite changes, night sweats, constitutional symptoms. no abdominal pain, GERD symptoms, nausea, vomiting, diarrhea, constipation, bloody/black stools, hematemesis, coffee ground emesis, melena, BRBPR, dysphagia, GI warning symptoms. X1 normal BM since we last spoke. no mood changes, depression symptoms, confusion, psychosis, delerium symptoms, homicidal/suicidal ideations , altered mentation, obtundation, encephalopathic symptoms, meningeal symptoms, neck rigidity, photophobia. no dysuria, hematuria, urinary frequency, flank pain, nocturia, urinary/bowel incontinance, urinary retention, polyuria, oliguria, other urinary symptoms/changes. Objective Vital signs: Temperature 95.3 F L 05/17/18 07:12 Pulse Rate 88 05/17/18 08:00 Respiratory Rate 20 05/17/18 12:53 Blood Pressure 130/86 05/17/18 07:12 Pulse Oximetry 94 05/17/18 12:53 Rhythm: Normal Sinus Rhythm Height/Weight/BMI: Height 1.63 m Weight 86.5 kg Body Mass Index 31.7 - Constitutional Present: no acute distress, well nourished, well developed, cooperative. Absent : cachectic, diaphoretic, disheveled, combative, agitated, somnolent, obtunded Comments: no changes. - Routine HEENT Exam Head: Present: normocephalic, atraumatic Comments: no changes from previous. - Routine Respiratory Exam Present: CTA bilaterally. Absent: accessory muscle use, patient mechanically ventilated, dyspnea, decreased breath sounds, prolonged expiratory phase, rales , respiratory distress, rhonchi, stridor, wheezes, crackles, distant breath sounds, diminished air movement Comments: lung sounds heard in all lung pfeiffer b/l at this time. no respiratory distress , retractions, accessory muscle use, stridor, airway compromise b/l at this time. - Routine Cardiovascular Exam Present: RRR Comments: no new or changing murmurs. no changes to cardiac exam from previous baseline. no boggy/inflammed/swollen/painful focal joints or muscle groups. no pallor or cyanosis of extremities. clinically well perfused in all 4 extremities b/l at this time. legs and arms symmetrical and compartments soft in extremities b/ l X4. no skin changes from previous to uncovered areas. no clinical evidence of shell, depression, anxiety, altered mentation, obtundation, confusion, psychosis, delerium, encpephalopathy, meningitis, neck rigidity, photophobia at this time. no changes neurologically from usual baseline. affect and cognition unchanged from usual baseline. sensation/motor/muscle strength/DTR's unchanged from usual baseline in extremities b/l x4. no tremors or muscle rigidity. no flushing. chronic post-polio issues at usual baseline at this time. denies homicidal/suicidal ideations. - Routine Abdominal Exam Present: soft, normoactive bowel sounds (X4.), non distended (X4.), non tender ( X4.). Absent: tenderness (X4.), distended (X4.), rebound, guarding, firm, rigid , organomegaly, mass Comments: no ascites, jaundice, distension. - Routine Exam Comments: no clinical evidence of upper or lower UTI at this time. - Routine Extremities Exam Absent: cyanosis, joint swelling, pallor, extremity cold to touch Comments: see the above. b/l feet/ankles/toes/lower extremities examined. capillary refill brisk in lower extremities bilaterally at this time. ROM/sensation/motor /muscle strength normal and symmetrical in toes/feet/ankles b/l at this time. there are no significant discernable color differences throughout feet/toes/ ankles bilaterally at this time. no pain to palpation of feet/toes/ankles b/l at this time. pulses normal throughout lower extremities b/l at this time both distally and proximally. no boggy/inflammed/swollen/painful focal joints or muscle groups in extremities b/l X4. no splinter hemorrhages or subunguinal hematomas in tonails bilaterally. all compartments soft and symmetrical in lower extremities/toes/feet bilaterally at this time. no clinical evidence of threatened limb in lower extremities b/l at this time. no dermatitis or cellulitis in lower extremities or upper extremities bilaterally at this time. no clinical evidence of acute, new or worsening neurovascular compromise in extremities b/l X4. - Routine Back/Spine/Pelvis Exam Comments: no back or leg pain. no clinical evidence of acute, new or worsening neurovascular or musculoskeletal compromise in extremities b/l X4. - Routine Musculoskeletal Exam Musculoskeletal: Present: no joint swelling, no tenderness, no erythema, moving extremities well. Absent: joint erythera, joint swelling - Routine Skin Exam Present: intact Comments: see the above as well. - Routine Neurological Exam Present: alert, oriented X3 see above as well. no changes from previous baseline. - Routine Lymphatic Exam Lymphatic: Absent: lymphedema - Routine Psychiatric Exam Present: normal affect, normal thought process, cooperative, good insight, good judgment. Absent: suicidal ideation, homicidal ideation, auditory hallucinations, visual hallucinations, tactile hallucinations, depressed, anxious, agitated, paranoid, manic Comments: denies homicidal/suicidal ideations. see the above. Results - Labs CBC & Chem 7: 05/17/18 04:08 05/17/18 04:08 Microbiology Results: Microbiology 05/13/18 22:04 Peripheral/Iv Start Blood Culture - Preliminary No Growth After 3 Days 05/13/18 22:05 Peripheral/Iv Start Blood Culture - Preliminary No Growth After 3 Days 05/14/18 07:58 Urine Legionella Urinary Antigen - Final 05/14/18 07:58 Urine Streptococcus pneumoniae Antigen (M - Final Assessment and Plan Assessment and Plan: community acquired pneumonia with severe sepsis. risk factor for MRSA is recent antibiotics. no risk factors for pseudomonas. 10 beat run of SVT 2 nights ago. none since. lactic acidosis secondary to the above, resolved. reactive airway secondary to the above versus acute asthma/COPD exacerbation mild transaminase elevation likely secondary to sepsis which is improving clinical dehydration, resolved leukocytosis and bandemia secondary to the above, resolved mild steroid induced hyperglycemia and leukocytosis dilutional anemia history of seasonal allergies hypothyroid elevated, asymptomatic blood pressure at times without diagnosis of hypertension -continue oxygen as needed, routine vitals with call parameters, I's and O's , daily weights, activity up with assist, cardiac diet, incentive spirometry, continuous pulse oximetry, telemetry, ambulation TID with assist, PT/OT, check bp's manually while here. setting up home health for assistance with activities of daily living before discharge. no further ectopy or arrhythmias called on telemetry. -continue levaquin day 3. I think will only need one more dose of levaquin but will check with pharmacy. this will be changed to PO of course. d/c IV solumedrol and convert to PO prednisone taper as outpatient. continue duonebs scheduled, tessalon perles, PO jennifer, PO aspirin, PO synthroid. -cbc's with stable mild dilutional anemia and steroid induced leukocytosis. bandemia resolved. otherwise cbc's unremarkable. cmp's with improving transaminases and sugars improving as steroids weened down and otherwise unremarkable. see previous notes and records for other testing and results fro this stay. -sputum culture and gram stain pending. blood cultures X2 from admission negative thus far but still officially pending. subjective discoloration of right toes in right lower extremity -right now patient's history and physical exam of lower extremities reassuring at this time. no clinical evidence of acute, new or worsening neurvascular or musculoskeletal compromise in LE's b/l at this time. patient instructed to watch closely and review feet and lower extremities every 1 to 2 hours. she was told to let us know if this wasn't gone in 24 hours. she was told if it worsens/changes/progresses at all to be seen right away. I don't see anything on exam at this time which is abnormal, changed from previous, or cause from concern. patient consulted on the above and verbalizes understanding. constipation -add dulcolax prn as outpatient -overall stable. patient denies constipation today. dry eyes -continue home artifical tears all other chronic medical conditions stable and no changes to plan of care at this time. ppx -continue SCD's and SQ lovenox for DVT ppx while inpatient. -continue PO diet noted above for GI ppx. -FULL CODE -dispo likely discharge to home later today. see discharge summary and orders for details. DVT Prophylaxis: SCD's, Lovenox GI Prophylaxis: other (continue PO diet. ) Resuscitation Status: Full Code - Time spent with patient Time with patient PN: 25 minutes Sepsis Assessment - Evaluation SIRS Criteria: WBC > 12,000 (due to steroids. no bandemia.) Severe Sepsis: none seen
[2018-05-17 17:49] VITALS: PULSE 82
--- NOTE | 2018-05-19 17:59 | Discharge Summary ---
DATE OF ADMISSION 05/14/2018 DATE OF DISCHARGE 05/17/2018 MODE OF ADMISSION Inpatient. ADMITTING PHYSICIAN [facility] ANCILLARY SERVICES DURING STAY 1. Physical Therapy, Occupational Therapy. The patient did well with this and they recommended a front-wheel walker as an outpatient but the patient needed no further therapies. 2. Home health was consulted but the patient refused. 3. Pharmacy helped dose antibiotics while here. CONSULTS DURING STAY None. DISCHARGE DIAGNOSES 1. Community-acquired pneumonia with severe sepsis and risk factors for drug resistant organisms and MRSA. 2. Severe sepsis secondary to diagnosis #1. 3. Ten-beat run of supraventricular tachycardia which occurred once during the stay, but none since. 4. Lactic acidosis on admission which has resolved. 5. Reactive airway secondary to chronic asthma//COPD. 6. Mild transaminase elevation secondary to sepsis which is improving. 7. Clinical dehydration which has resolved. 8. Leukocytosis and bandemia on admission secondary to sepsis which has resolved. 9. Mild steroid-induced hyperglycemia and leukocytosis. 10. Dilutional anemia. 11. History of seasonal allergies. 12. Hypothyroidism. 13. Elevated blood pressure without diagnosis of hypertension. 14. Subjective discoloration of the right toes and the right lower extremity of unlikely clinical significance at this time, but we are following. 15. Constipation. DISCHARGE MEDICATIONS 1. Artificial Tears, one drop in each eye every one hour as needed for dry eyes. 2. Aspirin 81 mg enterically coated daily. 3. Tessalon Perles 200 mg p.o. q.8h. for cough and congestion x 14 days with no refills. This is a new medicine. 4. Catarina 180 mg p.o. daily. 5. Levaquin 750 mg p.o. daily x 1 more day. 6. Synthroid 50 mcg p.o. daily. 7. Prednisone taper. The patient will take 40 mg p.o. daily x 3 days, then take 30 mg p.o. daily x 3 days, then take 20 mg p.o. daily x 3 days, then take 10 mg p.o. daily x3 days, then stop. Quantity given sufficient for this. There are no refills. This is a new medicine. 8. DuoNebs every six hours p.r.n. shortness of air/wheezing. This is a new medicine. The patient may take this or the albuterol inhaler every six hours as needed but not both together. The patient was consulted on this before discharge and she verbalized understanding. 9. Dulcolax 5 mg tablets, take one p.o. daily p.r.n. constipation. This is a new medicine. 10. Ventolin inhaler HFA, 90 mcg, two puffs oral inhaled q.6h. p.r.n. shortness of air/wheezing. Please see above for further instructions regarding this and the nebulizer. MEDICATIONS DISCONTINUED Ibuprofen, azithromycin. The patient denied taking any blood pressure medicines even though losartan was on her med list. We can consider starting something like this as an outpatient if the blood pressures return to being high again. This was not restarted on discharge as she had been doing okay without it and will be followed as an outpatient. DIET There are no changes to diet from prehospitalization. ACTIVITY There are no changes to activity level as from prehospitalization. Please see below for other instructions on this. PAIN MANAGEMENT/TREATMENT The patient was instructed THAT if she has any new pain or discomfort to be seen right away. WOUND CARE Patient instructed that if any of her IV sites become red, painful, swollen or do not heal properly then she will be seen right away. ADDITIONAL INSTRUCTIONS 1. The patient informed that if any issues worsen and/or new ones occur she will be seen immediately. 2. Nursing instructed to discontinue all lines, IVs and telemetry the patient did not come in on before discharge. 3. Nursing was instructed to set the patient up for a chest x-ray, PA and lateral, at [facility] in six weeks to follow on the pneumonia. A prescription was given for this. 4. The patient was informed to take the prednisone noted above with milk and/ or food. 5. Nursing instructed to inform the patient she may take the albuterol inhaler or albuterol nebulizer every six hours but not both together. 6. Nursing was told to make sure that the patient was set up for home health before discharge but the patient refused home health. She states she is getting Meals on Wheels and employing an outside service for help with activities of daily living on her own and she will take care of this. 7. A prescription was given for the nebulizer and incentive spirometer. 8. The patient was informed to using the incentive spirometer every hour. 9. Patient was informed that if she has any pain/discomfort over her heels, ankles or other joint/tendon/muscle group she is to be seen immediately. She was not having any of these throughout her stay here or on discharge. She, in fact, noted that her musculoskeletal pain, which is chronic, had never been better in many years. 10. The patient was informed to use front-wheel walker with any ambulation. A scrip was given for this on discharge. EXPECTED SIGNS/SYMPTOMS 1. The patient was informed that her shortness of breath, wheezing, generalized weakness, generalized fatigue, fevers, chills, body aches, cough, sputum production should all stay resolved. 2. Patient is to return to care immediately if any chest pain, fevers, chills, shortness of air, cough, sputum, fatigue, weakness, sinus issues, cough, sputum production or any other of the symptoms that brought her in to see us a few days ago should return. 3. The patient will also return to care immediately if any pain in her heels, ankles, knees, shoulders, wrists, elbows or other muscle or joint groups occur. 4. Numbers given for contacting Dr. Schwartz with questions for during business and after business hours. 5. For any pending results the patient will follow up with providers. PRADEEP This is not applicable as the patient does not smoke. FOLLOWUP The patient is set up [facility] a CBC, CMP and TSH done the day before and sent to him. DISCHARGE CONDITION The patient is discharged in stable and good condition on 05/17/2018. PERTINENT LABORATORY DURING STAY The patient's white count was initially right at about 20,000 coming in with a bandemia. This resolved. However, the patient's white count did come back up again into the mid-teens but there was no consistent bandemia and this was likely secondary to steroids. Hemoglobin did drop as low as 10.4. This was dilutional as the patient was getting IV fluids and it came back and was up to 11.0 by discharge. Hematocrit ranged anywhere from 32.1 to 35.6 while here. Platelets were normal while here. There was a predominance of neutrophils while here which is to be expected. INR and ProTime were generally unremarkable while here. Other CBC indices were unremarkable while here. Sodiums, potassiums, chlorides, acid base status, renal function were all unremarkable while here. Blood sugars did get into the low-to-mid 100s on steroids but came down and were in the 130s by discharge. Calciums were normal while here. Magnesiums were unremarkable while here. Patient's transaminases were mildly elevated on admission with an AST of 95 and an ALT of 81. As the patient's sepsis resolved this improved daily and her AST on discharge was normal and the ALT was down to 40. Alkaline phosphatase, bilirubin and other liver function indices were unremarkable. Troponins were negative x 4 while here. Brain natriuretic peptide on admission was unremarkable. Other protein indices started out as normal but were a little low on discharge which was likely secondary to dilution. Lactic acid on admission was 3.9. This was trended and came down to 1.8 and was normal thereafter. Procalcitonin was unremarkable. This was on admission. TSH was 0.36 on admission and will be followed as an outpatient as noted above. Urinalysis on admission was normal. Respiratory PCR on admission was completely normal. Patient's mycoplasma serologies are still officially pending. MICROBIOLOGY WHILE HERE The patient's blood cultures x 2 from admission were negative. The patient's urinary Legionella and Strep pneumonia antigens were negative. Sputum culture and Gram stain were ordered but the patient ceased with any sputum production upon initiation of antibiotics so this was unable to be obtained. PERTINENT IMAGING DURING STAY Chest x-ray done the day of admission showed patchy bilateral lower lobe infiltrates with possible peribronchial spread. Subsequent contrast CT scan showed a bilateral patchy pneumonia, worse on the right, but there were no effusions, empyemas or other evidence of complicated infections. Echocardiogram done on 05/14/2018 showed an ejection fraction of 70%. There was trace mitral regurgitation with some mitral valve annulus calcification. There was some mild aortic sclerosis without obvious stenosis. Otherwise, pulmonary artery pressures appeared okay and the valves otherwise appeared okay. PERTINENT PHYSICAL EXAM FINDINGS WHILE HERE On admission the patient demonstrated significant bibasilar wheezes and crackles and these had resolved completely by discharge. The patient was not moving air well on admission but was moving air normally by discharge. The patient's chronic post-polio symptoms and physical exam findings were stable while here. PERTINENT VITALS WHILE HERE The patient's blood pressures did get into the mid-100s systolic while here but were in the 130s/80s by discharge per report. She was afebrile while here. Her oxygenation was normal throughout while here and she did not require oxygen. Other vitals were unremarkable. HISTORY OF PRESENT ILLNESS/HOSPITAL COURSE This is a pleasant 77-year-old female with a history of post-polio syndrome and a remote history of asthma/COPD who is known to our clinic. She was in her usual state of health up until about seven days previous to admission at which time she started developing runny nose and clear rhinorrhea which developed into left ear pain, productive cough with yellow sputum as well as fevers, chills and generalized fatigue. Admission was recommended two days previous but the patient refused. Labs and x-rays were recommended that very day but the patient did not come in for another two days thereafter. When the labs and x-rays finally came back it was noted she had a pneumonia with severe sepsis. She did agree to admission after discussion of this over the phone. The patient did have risk factors for multidrug-resistant bacteria as well as MRSA so she was initially put on vancomycin and Levaquin. She was put on IV Solu- Medrol, DuoNeb scheduled, incentive spirometry, Tessalon Perles and sepsis protocol was followed. Please see above for the extensive imaging and laboratory evaluation as noted. The patient was given copious amounts of IV normal saline as well. Her lactic acid resolved and her white count and bandemia resolved. Her white count did come up later as she was on steroids but there was no consistent bandemia. Over the course of the next four days the patient improved significantly and by discharge was back to her baseline. She was ambulating well and no longer weak. Physical Therapy and Occupational Therapy did see the patient and did not see the need for any further therapies but did recommend a front-wheel walker which we have written for above. Please see above for the medication changes and new medicines on discharge. Please also see the above for followup in regards to testing and appointments. The patient's vitals were stable throughout. As noted, the patient is back to baseline from a respiratory standpoint and from an infectious disease standpoint. We did not find any useful microbiologic data from the labs and testing done and the patient was already given four days of Levaquin by discharge so we just continued this for one more day. The vancomycin was stopped after a couple of days as well. The patient denied any signs or symptoms of tendon//joint/muscle issues and it was felt the prednisone benefits in this case outweighed the risks. Levaquin made a good choice secondary to the patient's risk for multidrug-resistant bacteria. She tolerated all these medicines well. The patient was instructed to let us know if any muscle/joint/ tendon problems or discomfort occurred as noted above and she agrees to let us know immediately if they occur. The patient did have a ten-beat run of supraventricular tachycardia in the middle of this admission roughly. This was asymptomatic and it did not happen again. There was no evidence of atrial fibrillation or other arrhythmias on the strip. Electrolytes and troponins were all unremarkable. TSH was a little low but this was likely secondary to the acute illness and will be followed as an outpatient. This will all be followed further as an outpatient as needed. In regards to the patient's mild transaminase elevation, this was likely secondary to the sepsis and this had improved greatly by discharge and will be followed as an outpatient as noted above. The patient was dehydrated on admission but this resolved with IV fluids. The patient did eventually develop a mild steroid-induced hyperglycemia and leukocytosis while here. This will be followed as an outpatient and wasn't very profound to begin with. This should resolve as the patient is tapered off steroids. The patient is mildly anemic after IV fluids while here. This is likely dilutional and will be followed as an outpatient. There was no clinical evidence of bleeding at all during this stay. The patient has a history of seasonal allergies for which she will be continued on the Catarina. The patient does have a history of hypothyroidism. She is being continued on the Synthroid as noted above. The TSH was a little elevated while here but this can be followed further as an outpatient when she is not as acutely ill. The patient's blood pressures were a little elevated at times. These had normalized by discharge. We will follow as an outpatient and make the determination as to whether she needs medications thereafter. On discharge the patient did notice some discoloration of the right toes and the right lower extremity. This was more of a subjective than an objective finding. Her physical exam was unremarkable. History and physical exam was reassuring for being negative for any acute, chronic, new, worsening neurovascular and/or musculoskeletal compromise. The patient was instructed to watch closely and review her feet and lower extremities every one to two hours. She had no pain with this at any time. She was told to let us know if it wasn 't gone completely in 24 hours. She was also told to inform us if this worsens/ changes/progresses at all and she did agree to be seen right away if this happened. I did not see anything on physical exam which was altogether abnormal or cause for concern but she does agree to monitor as instructed. There was no clinical evidence of asymmetry of the legs or pallor/cyanosis of extremities and no clinical evidence of deep vein thrombosis anywhere. The patient does have a history of constipation. By discharge she had had one to two normal bowel movements but didn't have much for the first part of her stay. She was not eating much initially but was eating normally by discharge and this likely helped induce the bowel movements. We did put Dulcolax on her med list in case she should need it as an outpatient as she has taken this before with success. The patient does have a history of dry eyes for which she was continued on her Artificial Tears. All other chronic medical conditions stable and no other changes to plan of care at this time. For DVT prophylaxis the patient was put on SCDs and subcutaneous Lovenox while here. For GI prophylaxis the patient was on a p.o. diet while here. The patient was a FULL CODE while here. This was discussed at length with the patient and she did opt for a FULL CODE. DISPOSITION Discharge today to home in stable and good condition. The patient has reportedly set herself up for Meals on Wheels and is getting help with activities of daily living. FLORY
== END 2018-05-17 17:15 | disposition home or self-care (01) | DRG 871 ==
LOC: ED 21:45 → EDHOLD 22:03 → MED 23:05
PROVIDERS: ADMIT Internal Medicine; ATTEND Internal Medicine